=== PATIENT | male | born 2000 | race Caucasian/White ===

== ENCOUNTER 2022-11-21 11:41 | Emergency (ER) | payer BC, SELFPAY ==
[2022-11-21 12:11] VITALS: BP 146/91; PULSE 79; RESP 16; TEMP 36.8; O2SAT 97; BMI 38.7
[2022-11-21 12:43] LABS: Basophils # 0.1 10^3/uL (0.0-0.1); Basophils % 0.4 %; Eosinophils # 0.2 10^3/uL (0.0-0.8); Hematocrit 46.4 % (42.0-52.0); Lymphocytes # 2.2 10^3/uL (0.8-4.8); Lymphocytes % 19.1 %; Mean Corpuscular HGB Conc 34.5 g/dL (30.0-36.0); Mean Corpuscular Hemoglobin 29.7 pg (28.0-34.0); Mean Corpuscular Volume 86.2 fl (80-94); Mean Platelet Volume 10.8 fL (7.4-10.4); Monocytes # 1.4 10^3/uL (0.2-0.9); Monocytes % 12.5 %; Neutrophils # 7.37 10^3/uL (1.8-7.7); Neutrophils % 65.6 %; Nucleated Red Blood Cells % 0 %; Platelet Count 241 10^3/cmm (130-400); Red Blood Count 5.38 10^6/uL (4.1-5.3); White Blood Count 11.3 10^3/uL (4.0-10.0)
[2022-11-21 13:05] LABS: Alanine Aminotransferase 35 U/L (0-41); Albumin Level 4.1 g/dL (3.5-5.2); Alkaline Phosphatase 83 U/L (40-130); Anion Gap 18.2 (5-19); Aspartate Amino Transferase 23 U/L (0-40); Blood Urea Nitrogen 9 mg/dL (6-20); Calcium 9.2 mg/dL (8.5-10.5); Carbon Dioxide 23 mmol/L (22-29); Chloride 107 mmol/L (98-107); Globulin 2.9 g/dL (1.3-4.6); Glucose 89 mg/dL (65-115); Lipase 48 U/L (13-60); Osmolality Calculated 296 mOsm/kg (285-295); Potassium 4.2 mmol/L (3.5-5.1); Sodium 144 mmol/L (136-145); Total Bilirubin 0.5 mg/dL (0.15-1.2)
--- NOTE | 2022-11-21 13:12 | CT_ITS ---
WS: [id number] CT ABDOMEN AND PELVIS WITH CONTRAST HISTORY: abdominal pain, nausea, diarrhea, red blood in stool TECHNIQUE: Imaging performed of the abdomen and pelvis with IV contrast. Single phase imaging of the abdomen. Coronal and sagittal reformats are submitted. All CT scans at [facility] use at [address] one of these dose optimization techniques: automated exposure control; mA and/or kV adjustment per patient size (includes targeted exams where dose is matched to clinical indication); or iterative re construction. IV CONTRAST: Omnipaque 350; 100 mL IV. Oral contrast: No DLP: 1245.73 mGy.cm COMPARISON: None available. Lower thorax: Lung bases are clear. Heart is normal size. No hiatal hernia. Liver/biliary system: Normal size with no intrahepatic dilatation. Gallbladder: Normal. No gallstones or wall thickening. No pericholecystic fluid. Pancreas: Normal size pancreas and pancreatic duct. No adjacent inflammation. Spleen: Normal size spleen. No mass or infarct. Adrenal glands: Normal. Right kidney: No obstruction. Too small to characterize cortical hypodensity lower pole. Left kidney: Normal. Aorta: Normal. Lymphadenopathy: Numerous mesenteric lymph nodes are identified. These lymph nodes are small shoddy. Larger lymph nodes or hypervascular measuring up to 1.5 cm in the RIGHT lower quadrant. Free fluid: None. GI tract: Normally distended stomach. No small bowel obstruction. No blush-like areas of enhancement. There is very mild thickening involving the ascending colon. There is submucosal edema and mild thic kening. These changes extend to the transverse colon. Similar findings involving the descending colon with a very small amount of pericolonic stranding. No obstruction. Normal appendix. Abdominal wall: Fat containing umbilical hernia. Pelvis: No free fluid or adenopathy within the pelvis. Bones: Unremarkable. CT/CT abdomen pelvis w con* [id number] IMPRESSION: 1. Mild submucosal edema and wall thickening throughout the colon with a small amount of pericolonic stranding. No obstruction. Findings are most consistent with diffuse colitis or infection. No focal areas of abnormal enhancement. 2. Normal appendix. 3. Mesenteric lymph nodes, probably reactive. The largest lymph nodes in the R IGHT lower quadrant measuring up to 1.5 cm. Probably representing mesenteric ad enitis.
--- NOTE | 2022-11-21 13:14 | ED_ITS ---
HPI - Abdominal Pain General: Chief Complaint: Abdominal Pain Stated Complaint: Blood in Stool, Abd pains Time Seen by Provider: 11/21/22 12:20 History of Present Illness: Patient is a 22-year-old male who comes to the ED with abdominal pain. Symptoms initially started with a fever approximately 4 days ago. A day after his fever started he developed diarrhea, nausea and abdominal pain. Abdominal pain he describes as a constant dull ache that he rates a 5 out of 10. Pain is located in periumbilical and mid lower abdomen. Abdominal pain has episodes where it becomes more severe and its a 10 out of 10. He has been having multiple episodes of diarrhea every couple hours for the past several days. 2 days ago he started having red blood in stool. Today there appeared to be more red blood in stool than over the past couple days. Endorses nausea but denies any emesis. Associated Symptoms: Reports diarrhea, fever(s), hematochezia and nausea; Denies chills, constipation, dysuria, hematuria and vomiting Review of Systems Const: Reports: fever(s); Denies: chills or fatigue Eyes: Denies: change in vision or eye discomfort ENMT: Denies: throat pain, odynophagia, nasal discharge or nasal congestion Card: Denies: chest pain, palpitations, edema, swelling of feet/ankles, dyspnea on exertion or orthopnea Resp: Denies: dyspnea, productive cough or non-productive cough GI: Reports: abdominal pain, nausea, diarrhea and hematochezia; Denies: vomiting or constipation : Denies: flank pain, difficulty urinating, dysuria or hematuria Musc: Denies: neck pain, back pain or extremity swelling Skin/Breast: Denies: rash or new lesions Neuro: Denies: headache(s), numbness in extremities or weakness in extremities PFS ED PFSH: Medical History No pertinent family history Surgical History No pertinent past surgical history Physical Exam Const: COMMON NORMALS: no acute distress, patient oriented x3 and alert GENERAL APPEARANCE: cooperative HENMT: COMMON NORMALS: normocephalic HEAD & SCALP: normocephalic MOUTH: Normal oral and palatal mucosa present THROAT: posterior oropharynx normal and uvula midline Neck/C-Spine: COMMON NORMALS: supple GENERAL: Yes normal visual inspection Resp: COMMON NORMALS: normal respiratory effort, No retractions, No use of accessory muscles and clear to auscultation bilaterally AUSCULTATION: clear to auscultation bilaterally Cardio: COMMON NORMALS: regular rate, regular rhythm, S1 normal heart sound present, S2 normal heart sound present, No gallops present (Cardio), No clicks present (Cardio), No murmurs present (Cardio) and Peripheral pulses 2+ throughout RATE: regular rate RHYTHM: regular rhythm HEART SOUNDS: S1 normal heart sound present and S2 normal heart sound present PERIPHERAL PULSES: Peripheral pulses 2+ throughout GI: COMMON NORMALS: Normal to inspection, nondistended, normoactive bowel sounds present, Soft to palpation and no masses PALPATION: Yes Soft to palpation and Yes Tenderness to palpation present (GI) (Periumbilical and lower mid abdominal tenderness) : COMMON NORMALS: Yes no CVA tenderness BLADDER/KIDNEY EXAM: Yes no CVA tenderness Back/Pelvis: COMMON NORMALS: no CVA tenderness Extremity: COMMON NORMALS: normal to inspection Neuro: COMMON NORMALS: patient oriented x3 SENSORIUM/ORIENTATION: Yes alert GAIT: Yes Normal gait present Skin: GENERAL SKIN EXAM: dry skin Course Vital Signs: Vital signs: Vital Signs Temperature 98.2 F 11/21/22 12:11 Pulse Rate 78 11/21/22 15:07 Respiratory Rate 16 11/21/22 12:11 Blood Pressure 125/63 11/21/22 15:07 Pulse Oximetry 99 11/21/22 15:07 Oxygen Delivery Me thod 11/21/22 15:07 MDM - Abdominal Pain Medical Decision Making Patient is a 22-year-old male who comes to the ED with abdominal pain. Symptoms initially started with a fever approximately 4 days ago. A day after his fever started he developed diarrhea, nausea and abdominal pain. Abdominal pain he describes as a constant dull ache that he rates a 5 out of 10. Pain is located in periumbilical and mid lower abdomen. Abdominal pain has episodes where it becomes more severe and its a 10 out of 10. He has been having multiple episodes of diarrhea every couple hours for the past several days. 2 days ago he started having red blood in stool. Today there appeared to be more red blood in stool than over the past couple days. Endorses nausea but denies any emesis. Vitals are stable. Exam shows some mild periumbilical and lower mid abdominal tenderness. Rest of exam is benign and patient appears nontoxic in no acute distress. White blood cell count of 11.3 but the rest of CBC and CMP are unremarkable. UA is unremarkable as well. Abdominal CT shows diffuse wall thickening and submucosal edema of colon. No obstruction or abscess noted. Rest of exam is benign. Patient was given 1 L of IV fluids and Zofran while here in the ED. Patient diagnosed with colitis and was stable for discharge home. Patient sent home with a prescription for antibiotic and Zofran. Return to ED precautions given. Follow-up with PCP in the next week for reevaluation. Patient understood agree with plan. Lab Data I reviewed the patient's lab results. 11/21/22 12:30 11/21/22 12:30 Labs/Radiology: Radiology Impressions Abdomen/Pelvis CT 11/21/22 13:12 IMPRESSION: 1. Mild submucosal edema and wall thickening throughout the colon with a small amount of pericolonic stranding. No obstruction. Findings are most consistent with diffuse colitis or infection. No focal areas of abnormal enhancement. 2. Normal appendix. 3. Mesenteric lymph nodes, probably reactive. The largest lymph nodes in the RIGHT lower quadrant measuring up to 1.5 cm. Probably representing mesenteric adenitis. Laboratory Results WBC 11.3 10^3/uL (4.0-10.0) H 11/21/22 12:30 RBC 5.38 10^6/uL (4.1-5.3) H 11/21/22 12:30 Hgb 16.0 g/dL (11.7-16.6) 11/21/22 12:30 Hct 46.4 % (42.0-52.0) 11/21/22 12:30 MCV 86.2 fl (80-94) 11/21/22 12:30 MCH 29.7 pg (28.0-34.0) 11/21/22 12:30 MCHC 34.5 g/dL (30.0-36.0) 11/21/22 12:30 RDW 12.0 % (12.1-15.1) L 11/21/22 12:30 Plt Count 241 10^3/cmm (130-400) 11/21/22 12:30 MPV 10.8 fL (7.4-10.4) H 11/21/22 12:30 Neut % (Auto) 65.6 % 11/21/22 12:30 Lymph % (Auto) 19.1 % 11/21/22 12:30 [place] % (Auto) 12.5 % 11/21/22 12:30 Eos % (Auto) 2.0 % 11/21/22 12:30 Baso % (Auto) 0.4 % 11/21/22 12:30 Neut # (Auto) 7.37 10^3/uL (1.8-7.7) 11/21/22 12: Lymph # (Auto) 2.2 10^3/uL (0.8-4.8) 11/21/22 12:30 [place] # (Auto) 1.4 10^3/uL (0.2-0.9) H 11/21/22 12:30 Eos # (Auto) 0.2 10^3/uL (0.0-0.8) 11/21/22 12:30 Baso # (Auto) 0.1 10^3/uL (0.0-0.1) 11/21/22 12:30 Nucleated RBC % (auto) 0 % 11/21/22 12: Nucleated RBCs # 0.0 /100WBC 11/21/22 12:30 Sodium 144 mmol/L (136-145) 11/21/22 12:30 Potassium 4.2 mmol/L (3.5-5.1) 11/21/22 12:30 Chloride 107 mmol/L (98-107) 11/21/22 12:30 Carbon Dioxide 23 mmol/L (22-29) 11/21/22 12:30 Anion Gap 18.2 (5-19) 11/21/22 12:30 BUN 9 mg/dL (6-20) 11/21/22 12:30 Creatinine 0.7 mg/dL (0.7-1.2) 11/21/22 12:30 GFR Calculation 141.0 mL/min (90-130) H 11/21/22 12:30 Glucose 89 mg/dL (65-115) 11/21/22 12:30 Calculated Osmolality 296 mOsm/kg (285-295) H 11/21/22 12:30 Calcium 9.2 mg/dL (8.5-10.5) 11/21/22 12:30 Total Bilirubin 0.5 mg/dL (0.15-1.2) 11/21/22 12:30 AST 23 U/L (0-40) 11/21/22 12:30 ALT 35 U/L (0-41) 11/21/22 12:30 Alkaline Phosphatase 83 U/L (40-130) 11/21/22 12:30 Total Protein 7.0 g/dL (6.6-8.7) 11/21/22 12:30 Albumin 4.1 g/dL (3.5-5.2) 11/21/22 12:30 Globulin 2.9 g/dL (1.3-4.6) 11/21/22 12:30 Lipase 48 U/L (13-60) 11/21/22 12:30 Urine Color Yellow (Yellow) 11/21/22 13:33 Urine Appearance Clear (CLEAR) 11/21/22 13:33 Urine pH 5 (5-7) 11/21/22 13:33 Ur Specific [place] 1.025 (1.005-1.030) 11/21/22 13:33 Urine Protein Neg (Negative) 11/21/22 13:33 Urine Glucose (UA) Norm (Normal) 11/21/22 13:33 Urine Ketones 1+ (Negative) H 11/21/22 13:33 Urine Blood Neg (Negative) 11/21/22 13:33 Urine Nitrate Negative (Negative) 11/21/22 13:33 Urine Bilirubin Neg (Negative) 11/21/22 13:33 Urine Urobilinogen Norm mg/dL (Negative) 11/21/22 13:33 Ur Leukocyte Esterase Negative (Negative) 11/21/22 13:33 Discharge Plan Discharge Patient Disposition: Home Clinical Impression: Colitis Condition: Stable Prescriptions: New ciprofloxacin HCl 500 mg tablet 500 mg PO BID 7 Days Qty: 14 0RF metronidazole 500 mg tablet 500 mg PO Q8H 7 Days Qty: 21 0RF ondansetron 4 mg tablet,disintegrating 4 mg PO Q8H PRN (Reason: nausea and vomiting) Qty: 20 0RF Discharge Orders: Discharge ED (Routine); Ordered 11/21/22 Ordered By: Mohit Hadley Referrals: Tamiko Croft FNP [Primary Care Provider] - Discharge Diet: Regular Discharge Activity: Increase activity as tolerated Patient Instructions: Colitis (ED) Activity Restrictions/Additional Instructions: Follow-up with medical provider as directed in the next 7 to 10 days for reevaluation. Make sure you drink plenty fluids and stay hydrated. Take medications as prescribed. Return to the ER or your medical provider if condition worsens. Please read and understand discharge instructions. Thank you for choosing [facility] for your healthcare needs today. Please realize this is an emergency room and that we are providing you with a medical screening exam and this may not be complete and all inclusive of all the testing and or work up that you may need to determine your ailment or severity of your illness. It is very important that you follow up as instructed or that you return to the Emergency Department should you have concerns or if your condition changes or worsens in any way. Coding Level of Care Code ED [place] for Ulises Rizvi
[2022-11-21 13:39] LABS: Add Urine Microscopic? NO; Charge for UA Resulting for Rev
[2022-11-21] MEDS: ondansetron 2 mg/ML SDV 2 mL 4 MG IVP (13:40)
[2022-11-21] MEDS: sodium chloride 0.9% 1,000 ML 999 ML IV (13:40)
[2022-11-21 13:44] VITALS: BP 131/65; O2SAT 98
[2022-11-21 13:59] LABS: Specific Gravity, Urine 1.025 (1.005-1.030); Urine Appearance Clear (CLEAR); Urine Color Yellow (Yellow); pH Urine 5 (5-7)
[2022-11-21 14:00] LABS: Bilirubin Urine Neg (Negative); Blood Urine Neg (Negative); Glucose Urine UA Norm (Normal); Ketones Urine 1+ (Negative); Leukocyte Esterase Urine Negative (Negative); Nitrate Urine Negative (Negative); Protein Urine Neg (Negative); Urobilinogen Urine Norm (Negative)
[2022-11-21] MEDS: iohexol 350 mg/mL 500 mL Btl (per mL) IV (14:38)
[2022-11-21 15:07] VITALS: BP 125/63; PULSE 78; O2SAT 99
[2022-11-21 15:36] VITALS: BP 116/87; PULSE 75; RESP 20; O2SAT 99
== END 2022-11-21 15:37 | disposition home or self-care (01) ==
PROVIDERS: Emergency Provider Physician Assistant; PCP Nurse Practitioner Family
DX: K52.9 Noninfective gastroenteritis and colitis, unspecified (principal)
CPT/HCPCS: 36415; 74177; 80053; 81003; 83690; 85025; 96374; 99285; J2405; J7030; Q9967